=== PATIENT | male | born 1985 | race Caucasian/White ===

== ENCOUNTER 2025-09-07 10:03 | Outpatient (AMB) | payer OTHER, SELFPAY ==
--- NOTE | 2025-09-07 10:27 | A.OFFPC_ITS ---
Vital Signs 09/07/25 10:29 Height 5 ft 10.08 in Weight 282 lb BMI 40.4 BP 130/80 Blood Pressure Location Lt brachial Position Sitting Pulse 94 Pulse Source Pulse Oximeter Temp 97.1 F Temp Source Temporal Artery Scan Pulse Oximetry (%) 97 Oxygen Delivery Method Room Air Intake Visit Reasons: Asthma KILN HAND Intake Note: Patient is a new patient here to establish care for Asthma, Bipolar?, Schizophrenia effective, Anxiety, Depression. Transferring care from [facility]. Medical records have been requested and have not received. Digitizer Operator Required: No Helper Teacher: Not Required per policy Accompanied by: Self / Same As Patient Allergies risperidone Allergy (Intermediate, Verified 09/07/25 10:38) swelling of the toungue penicillin V Allergy (Unknown, Verified 09/07/25 10:38) Unknown Medication List - Last Reconciled 09/07/25 by Macy Mcdaniel MD albuterol sulfate 90 mcg/actuation 2 puffs inhalation Q4H PRN albuterol sulfate 2.5 mg inhalation TID cyclobenzaprine 10 mg PO BID PRN fexofenadine 180 mg PO DAILY ibuprofen 800 mg PO TID PRN mometasone-formoterol 100-5 mcg/actuation (Dulera) 2 puffs inhalation BID montelukast 10 mg PO DAILY paliperidone ER (Invega) 3 mg PO QAM Tobacco use date assessed: 09/07/25 Dental Screening Dental Screen Date: 09/07/25 Did you have a dental visit in the last 12 months?: Yes Did you have a dental problem in the last 6 months where you did not have access to dental care?: No Was dental information given to patient?: Patient has dentist HPI HPI Comments History of Present Illness Details The patient is a 40 year old individual with PMH of Asthma, MDD, anxiety presenting to establish care, seek medication refills, and address uncontrolled asthma. The patient has a history of asthma since childhood, which has been uncontrolled recently with daily attacks. For the past month, the patient experienced a productive cough, suggestive of bronchitis, and required 2-3 nebulizer treatments each morning. The patient has been using albuterol and montelukast but has run out of other maintenance inhalers, like Dulera, due to insurance issues and difficulty contacting the previous provider's office. The patient has a history of a ruptured disc, which previously caused radicular pain down a leg that has since resolved. Currently, the patient is pain-free but requests a cyclobenzaprine prescription for potential flare-ups and reports minimal use of ibuprofen. The patient has a significant psychiatric history, including a diagnosis of bipolar disorder in the patient's 20s following a traumatic family event, which resulted in hospitalization and memory loss. The patient was successfully treated with a low dose of Invega, which improved functionality, but tapered off the medication in 2019 and has remained stable since. Recently, the patient has experienced heightened anxiety due to two traumatic family events: the patient's 's near-fatal gallbladder surgery and the patient's stepson's suicidal ideation and self-harm. The patient is not currently followed by a psychiatrist but intends to start therapy. The patient also reports a history of allergies, for which the patient takes fexofenadine and needs a refill. The patient reports a history of smoking in high school and trying marijuana in the 20s but denies current use of either. The patient drinks alcohol socially, such as wine or bourbon, but not to excess. [facility] Surgical History (Updated 09/07/25 @ 10:45 by TALI Huff) No pertinent past surgical history Family History (Updated 09/07/25 @ 10:45 by TALI Huff) Other Mental health disorder Substance use disorder Social History (Updated 09/07/25 @ 10:45 by TALI Huff) Housing: Condominium Alcohol intake: current Alcohol intake frequency: a few times a month Patient Tobacco Use Status: Never used Tobacco e-Cigarette/Vaping Use: Never Used Second Hand Smoke Exposure: No service: No Current occupational status: employed Current occupation: [employer] Cognitive needs: No Hearing needs: No Vision needs: Yes (Glasses) Questionnaire PHQ-9 Over the last 2 weeks, how often have you been bothered by any of the following problems? 1. Little interest or pleasure in doing things: not at all 2. Feeling down, depressed, or hopeless: not at all 3. Trouble falling or staying asleep, or sleeping too much: not at all 4. Feeling tired or having little energy: not at all 5. Poor appetite or overeating: not at all 6. Feeling bad about yourself - or that you are a failure or have let yourself or your family down: not at all 7. Trouble concentrating on things, such as reading the newspaper or watching television: not at all 8. Moving or speaking so slowly that other people could have noticed. Or the opposite - being so fidgety or restless that you have been moving around a lot more than usual: not at all 9. Thoughts that you would be better off or of hurting yourself in some way: not at all Total score: 0 Depression Screening Interpretation: Negative Depression Screening Done: Yes Source: Developed by Drs. Pillo Montilla, Erin Redding, Ben Terrell and colleagues, with an educational brit from [employer]. Thrive Questionnaire Date Thrive assessed: 09/07/25 I am a: Patient What is your living situation today?: I have a steady place to live Within the past 12 months, did the food you bought not last and you didn't have the money to get more?: Never true Within the past 12 months, did you worry whether your food would run out before you got money to buy more?: Never true Do you have trouble paying for medicines?: No Do you have trouble getting transportation to medical appointments?: No Do you have trouble paying your heating and electricity bill?: No Do you have trouble taking care of your child, family member or friend?: No Do you have trouble with day-to-day activities such as bathing, preparing meals, shopping, managing finances, etc.?: No Are you currently unemployed and looking for a job?: No Are you interested in more education?: No Please select the resources that you would like help with: None Currently or been in a relationship where the following occur: No concerns reported THRIVE Score: 0 AUDIT C Alcohol Use Questionnaire (AUDIT-C) 1. How often do you have a drink containing alcohol?: 2-4 times a month 2. How many drinks containing alcohol do you have on a typical day when you are drinking?: 1 or 2 Total Score: 2 MIGUEL ÁNGEL-7 AMB Questionnaire MIGUEL ÁNGEL-7 Date MIGUEL ÁNGEL - 7 assessed: 09/07/25 Feeling nervous, anxious, or on edge: 3 = Nearly every day Not being able to stop or control worryin = More than half the days Worrying too much about different things: 2 = More than half the days Trouble relaxin = More than half the days Being so restless that it is hard to sit still: 0 = Not at all Becoming easily annoyed or irritable: 3 = Nearly every day Feeling afraid as if something awful might happen: 3 = Nearly every day Total MIGUEL ÁNGEL-7 score (0-4 normal; 5-9 mild; 10-14 moderate; 15-21 severe): 15 Source: Developed by Drs. Pillo Montilla, Erin Redding, Ben Terrell and colleagues, with an educational brit from [employer]. Review of Systems Const Details: Positives besides what was mentioned in HPI are in BOLD Constitutional: No Weight Change, No Fever, No Chills, No Night Sweats, No Fatigue, No Malaise ENT/Mouth: No Hearing Changes, No Ear Pain, No Nasal Congestion, No Sinus Pain, No Hoarseness, No sore throat, No Rhinorrhea, No Swallowing Difficulty Eyes: No Eye Pain, No Swelling, No Redness, No Foreign Body, No Discharge, No Vision Changes Cardiovascular: No Chest Pain, No SOB, No PND, No Dyspnea on Exertion, No Orthopnea, No Claudication, No Edema, No Palpitations Respiratory: No Cough, No Sputum, No Wheezing, No Smoke Exposure, No Dyspnea Gastrointestinal: No Nausea, No Vomiting, No Diarrhea, No Constipation, No Pain, No Heartburn, No Anorexia, No Dysphagia, No Hematochezia, No Melena, No Flatulence, No Jaundice Genitourinary: No Dysmenorrhea, No DUB, No Dyspareunia, No Dysuria, No Urinary Frequency, No Hematuria, No Urinary Incontinence, No Urgency, No Flank Pain, No Urinary Flow Changes, No Hesitancy Musculoskeletal: No Arthralgias, No Myalgias, No Joint Swelling, No Joint Stiffness, No Back Pain, No Neck Pain, No Injury History Skin: No Skin Lesions, No Pruritis, No Hair Changes, No Breast/Skin Changes, No Nipple Discharge Neuro: No Weakness, No Numbness, No Paresthesias, No Loss of Consciousness, No Syncope, No Dizziness, No Headache, No Coordination Changes, No Recent Falls Psych: No Anxiety/Panic, No Depression, No Insomnia, No Personality Changes, No Delusions, No Rumination, No SI/HI/AH/VH, No Social Issues, No Memory Changes, No Violence/Abuse Hx., No Eating Concerns Heme/Lymph: No Bruising, No Bleeding, No Transfusions History, No Ly mphadenopathy Endocrine: No Polyuria, No Polydipsia, No Temperature Intolerance Physical exam (Primary Care) Vital Signs: Last Vital Signs Temp 97.1 F 09/07/25 10:29 Pulse 94 09/07/25 10:29 BP 130/80 09/07/25 10:29 Pulse Ox 97 09/07/25 10:29 Oxygen Delivery Method Room Air 09/07/25 10:29 BMI result Body Mass Index 40.4 Tobacco/Smoking Status: Tobacco use Status Tobacco use date assessed 09/07/25 09/07/25 10:48 Patient Tobacco Use Status Never used Tobacco 09/07/25 10:48 e-Cigarette/Vaping Use Never Used 09/07/25 10:48 PHQ-9: PHQ-9 Score PHQ-9: Total score 0 09/07/25 10:48 Depression Screening Interpretation: Negative Thrive Assessment: Date of Thrive Assessment Date Thrive assessed 09/07/25 09/07/25 10:48 Currently or been in a relationship where the following occur: No concerns reported Const Other: Pertinent findings are in BOLD GENERAL APPEARANCE NAD, activity normal for age, well developed/ well nourished, no cyanosis, pallor, or diaphoresis. EYES lids/conjunctiva normal. EARS/NOSE/THROAT Mucous membranes moist, nares normal, lips/teeth normal uvula midline without oral pharyngeal erythema, exudate or swelling TMs normal bilaterally. No lymphangitis/lymphedema. HEAD/NECK normocephalic atraumatic, no facial trauma, neck is supple. RESPIRATORY respiratory effort normal, speaks in full sentences, no tripod position, no accessory muscle use. Lungs clear to auscultation without rhonchi, wheezes, rales CARDIAC Regular rate and rhythm, no edema. ABDOMINAL Soft, ND/NT. No evidence of fluid wave. No pulsatile masses on exam, rebound tenderness, Thomas sign or pain over Mcburney's point. MUSCLES/EXTREMITIES No abnormal range of motion, no swelling. SKIN Warm, pink and dry. No rashes, dermatoses, petechiae or lesions. NEUROLOGICAL Speech is clear and appropriate. Normal level of consciousness. Gait and coordination are normal. 5/5 strength in all extremities. PSYCH Normal mood and affect. Judgement/competence is appropriate Coding Level of Care Code New Pt Level 4 (12883) Diagnoses Moderate asthma without complication, unspecified whether persistent J45.909 Asthma severity: moderate Asthma persistence: unspecified Asthma complication type: uncomplicated Chronic midline back pain, unspecified back location M54.9; G89.29 Back pain location: back pain in unspecified location Chronicity: chronic Back pain laterality: midline Allergic rhinitis, unspecified seasonality, unspecified trigger J30.9 Allergic rhinitis trigger: unspecified Allergic rhinitis seasonality: unspecified Anxiety F41.9 Time Spent (min) 45 Assessment & Plan Assessment & Plan (1) Asthma: Code(s): J45.909 - Unspecified asthma, uncomplicated Category: Medical Qualifiers: Asthma severity: moderate Asthma persistence: unspecified Asthma complication type: uncomplicated Qualified Code(s): J45.909 - Unspecified asthma, uncomplicated Plan: - The patient's asthma is currently uncontrolled, with daily attacks. - A prescription for albuterol inhaler was provided for rescue use. - Restart Dulera inhaler for maintenance therapy. - Continue montelukast. - A referral to pulmonology has been placed for further evaluation and management. (2) Back pain: Code(s): M54.9 - Dorsalgia, unspecified Category: Medical Qualifiers: Back pain location: back pain in unspecified location Chronicity: chronic Back pain laterality: midline Qualified Code(s): M54.9 - Dorsalgia, unspecified; G89.29 - Other chronic pain Plan: - The patient reports a history of a ruptured disc, which is currently asymptomatic. - Prescribed cyclobenzaprine 10 mg to be taken as needed for back pain, preferably at night. - Advised to stop ibuprofen and rely more on cyclobenzaprine for pain. (3) Allergic rhinitis: Code(s): J30.9 - Allergic rhinitis, unspecified Category: Medical Qualifiers: Allergic rhinitis trigger: unspecified Allergic rhinitis seasonality: unspecified Qualified Code(s): J30.9 - Allergic rhinitis, unspecified Plan: - The patient will continue fexofenadine as needed for allergies. - Advised that it is best taken at night due to the potential for drowsiness. (4) Anxiety: Code(s): F41.9 - Anxiety disorder, unspecified Category: Medical Plan: - The patient reports increased anxiety following recent traumatic family events. - The patient was encouraged to seek therapy and has a plan to do so through insurance. - A referral for a psychiatrist was offered for medication management if needed. Plan I discussed the plan to manage the patient's uncontrolled asthma, including prescribing albuterol for rescue, restarting the Dulera inhaler for maintenance, and continuing montelukast. Due to the severity of daily symptoms, I placed a referral to pulmonology for specialist evaluation. We reviewed the medication plan for other chronic issues, including a prescription for fexofenadine for allergies and cyclobenzaprine for as-needed use for back pain, with cautions about drowsiness for both. We had an extensive conversation about the patient's mental health history and current high anxiety related to recent family trauma. I validated the patient's experience and supported the proactive steps being taken to re-engage in therapy. I offered a referral to psychiatry if medication becomes necessary. I outlined the follow-up plan, which includes an appointment in two months to assess the asthma and anxiety, and an annual physical in six months. We ordered baseline labs, including standard health screenings for HIV and Hepatitis C. The patient declined vaccinations at this time. Orders: Orders Complete Blood Count no Diff Today Z00.00 - Encounter for general adult medical examination without abnormal findings Hemoglobin A1c Today Z00.00 - Encounter for general adult medical examination without abnormal findings HIV Ab/Ag Today Z00.00 - Encounter for general adult medical examination without abnormal findings Hepatitis C Antibody Reflex Today Z00.00 - Encounter for general adult medical examination without abnormal findings Lipid Panel Today Z00.00 - Encounter for general adult medical examination without abnormal findings Comprehensive Met. Panel Today Z00.00 - Encounter for general adult medical examination without abnormal findings TSH reflex Free T4 Today Z00.00 - Encounter for general adult medical examination without abnormal findings UA and rflx microscopic Today Z00.00 - Encounter for general adult medical examination without abnormal findings Vitamin D 25-OH Total Today Z00.00 - Encounter for general adult medical examination without abnormal findings Referrals Pulmonology Referral J45.909 - Unspecified asthma, uncomplicated Medications: New mometasone-formoterol 100-5 mcg/actuation (Dulera) 2 puffs inhalation BID 13 grams 3RF albuterol sulfate 90 mcg/actuation 2 puffs inhalation Q4H PRN 8.5 grams 3RF wheezing fexofenadine 180 mg PO DAILY 90 tabs 3RF cyclobenzaprine 10 mg PO DAILY PRN 30 tabs 3RF muscle spasm montelukast 10 mg PO DAILY 90 tabs 3RF
[2025-09-07 10:29] VITALS: BP 130/80; PULSE 94; TEMP 36.2; O2SAT 97; BMI 40.4
== END 2025-09-07 11:43 | disposition home or self-care (01) ==
LOC: HO.HMCH 10:04
PROVIDERS: Visit Provider Internal Medicine
DX: J45.909 Unspecified asthma, uncomplicated (principal); M54.9 Dorsalgia, unspecified; G89.29 Other chronic pain; J30.9 Allergic rhinitis, unspecified; F41.9 Anxiety disorder, unspecified